=== PATIENT | female | born 1970 | race Caucasian/White ===

== ENCOUNTER → 2023-07-27 | Outpatient (REF) | LOC: M PLAIMG 13:46 | PROVIDERS: ATTEND Internal Medicine | DX: R52 Pain, unspecified (principal) ==

== ENCOUNTER 2025-03-24 13:43 | Emergency (ER) | payer MEDICARE, OTHER ==
[~2025-03-24] VITALS: Ht 152.4 cm; Wt 70.9 kg
[2025-03-24 14:00] VITALS: TEMP 97.1
[2025-03-24] MEDS ORDERED: GABA-284 PO (14:16)
[2025-03-24] MEDS ORDERED: CLONI1TA PO (14:16)
[2025-03-24 14:30] LABS: CALCIUM LEVEL 8.9 MG/DL (8.5-10.1); CREATININE FOR GFR 2.36 MG/DL (0.55-1.30); GLOMERULAR FILTRATION RATE 23.6 (>51); POTASSIUM SERUM 5.3 MMOL/L (3.5-5.1)
[2025-03-24 14:31] LABS: BASO # 0.1 10^3/uL (0.0-0.2); BASO % 0.3 % (0.0-1.0); EOS % 0.1 % (0.0-3.0); HEMATOCRIT 38.2 % (36.0-47.0); HEMOGLOBIN 12.4 g/dl (12.0-15.5); LYMPH # 1.7 10^3/uL (1.5-5.0); LYMPH % 10.3 % (24.0-44.0); MEAN CORPUSCULAR HEMOGLOBIN 30.3 pg (27.0-33.0); MEAN CORPUSCULAR HGB CONC 32.5 g/dl (32.0-36.5); MEAN CORPUSCULAR VOLUME 93.4 fl (80.0-96.0); MONO # 1.4 10^3/uL (0.0-0.8); MONO % 8.4 % (2.0-8.0); NEUTROPHILS # 13.1 10^3/uL (1.5-8.5); NEUTROPHILS % 80.5 % (36.0-66.0); PLATELET COUNT, AUTOMATED 313 10^3/uL (150-450); RED BLOOD COUNT 4.09 10^6/uL (4.00-5.40); WHITE BLOOD COUNT 16.2 10^3/uL (4.0-10.0)
[2025-03-24] MEDS: NS (Normal Saline) 0.9% 1,000 ML IV ONE (15:10)
[2025-03-24 15:54] LABS: APPEARANCE, URINE CLOUDY (CLEAR); BACTERIA, URINE AUTO 2+ (NEGATIVE); BILIRUBIN, URINE AUTO 1+ (NEGATIVE); BLOOD, URINE BLOOD NEGATIVE (NEGATIVE); COLOR, URINE AMBER (YELLOW); GLUCOSE, URINE (UA) AUTO NEGATIVE (NEGATIVE); KETONE, URINE AUTO TRACE mg/dL (NEGATIVE); LEUKOCYTE ESTERASE, URINE AUTO NEGATIVE (NEGATIVE); MUCUS, URINE SMALL (NEGATIVE); NITRITE, URINE AUTO NEGATIVE (NEGATIVE); PROTEIN, URINE AUTO 2+ mg/dL (NEGATIVE); RBC, URINE AUTO 2 /HPF (0-3); SPECIFIC GRAVITY URINE AUTO 1.026 (1.002-1.035); SQUAMOUS EPITHELIAL CELL UR AU 7 /HPF (0-6); WBC, URINE AUTO 9 /HPF (0-3)
[2025-03-24 16:01] LABS: AMPHETAMINES LEVEL URINE NEGATIVE (NEGATIVE); BARBITURATES URINE NEGATIVE (NEGATIVE); BENZODIAZEPINES URINE NEGATIVE (NEGATIVE); CANNABINOIDS URINE NEGATIVE (NEGATIVE); METHADONE URINE NEGATIVE (NEGATIVE); OPIATES URINE NEGATIVE (NEGATIVE); PHENCYCLIDINE URINE NEGATIVE (NEGATIVE)
[2025-03-24 16:04] LABS: COCAINE METABOLITE URINE POSITIVE (NEGATIVE)
[2025-03-24 17:15] VITALS: BP 146/86
[2025-03-24 17:30] VITALS: O2SAT 100
== END 2025-03-24 17:49 | disposition left against medical advice (07) ==
LOC: M ED 13:43
DX: R55 Syncope and collapse (principal); Z53.9 Procedure and treatment not carried out, unspecified reason; M54.9 Dorsalgia, unspecified; J44.9 Chronic obstructive pulmonary disease, unspecified; K21.9 Gastro-esophageal reflux disease without esophagitis; D50.9 Iron deficiency anemia, unspecified; E78.5 Hyperlipidemia, unspecified; F31.9 Bipolar disorder, unspecified; F90.9 Attention-deficit hyperactivity disorder, unspecified type; F14.10 Cocaine abuse, uncomplicated; F11.10 Opioid abuse, uncomplicated; Z87.891 Personal history of nicotine dependence; K52.9 Noninfective gastroenteritis and colitis, unspecified; M43.27 Fusion of spine, lumbosacral region

== ENCOUNTER → 2025-04-13 | Outpatient (REF) | payer MEDICAID, OTHER ==
[~2025-04-13] MED LIST: CLONI1TA PO; GABA-284 PO
== END ==
LOC: M LAB REF 13:10
PROVIDERS: ATTEND Internal Medicine
DX: R19.7 Diarrhea, unspecified (principal)

== ENCOUNTER 2025-05-10 02:34 | Emergency (ER) | payer MEDICARE, MEDICAID ==
[~2025-05-10] VITALS: Ht 152.4 cm; Wt 74.1 kg
[2025-05-10 06:44] LABS: BASO # 0.1 10^3/uL (0.0-0.2); BASO % 0.6 % (0.0-1.0); EOS # 0.3 10^3/uL (0.0-0.5); EOS % 2.9 % (0.0-3.0); LYMPH # 3.2 10^3/uL (1.5-5.0); LYMPH % 34.7 % (24.0-44.0); MONO # 0.8 10^3/uL (0.0-0.8); MONO % 8.8 % (2.0-8.0); NEUTROPHILS # 4.9 10^3/uL (1.5-8.5); NEUTROPHILS % 52.8 % (36.0-66.0); PLATELET COUNT, AUTOMATED 287 10^3/uL (150-450)
[2025-05-10 06:57] LABS: KETONE, URINE AUTO RFX NEGATIVE (NEGATIVE); LEUKOCYTE ESTERASE UR AUTO RFX NEGATIVE (NEGATIVE); MUCUS, URINE RFX SMALL (NEGATIVE); NITRITE, URINE AUTO RFX NEGATIVE (NEGATIVE); RBC, URINE AUTO RFX 1 /HPF (0-3); SQUAM EPITHELIAL CELL UR AURFX 6 /HPF (0-6); WBC, URINE AUTO RFX 5 /HPF (0-3)
[2025-05-10] MEDS ORDERED: ISOVUE-370 76% 100 ML VIAL As Ordered ONE (06:57)
[2025-05-10 07:07] LABS: ALT/SGPT 14.0 U/L (7.0-40); AST/SGOT 15.0 U/L (<34); CALCIUM LEVEL 9.9 MG/DL (8.5-10.1); CARBON DIOXIDE LEVEL 27.0 MMOL/L (20-31); CHLORIDE LEVEL 106.0 MMOL/L (98-107); CREATININE FOR GFR 1.17 MG/DL (0.55-1.30); GLOMERULAR FILTRATION RATE 54.8 (>51); POTASSIUM SERUM 4.4 MMOL/L (3.5-5.1); SODIUM LEVEL 144.0 MMOL/L (136-145)
[2025-05-10] MEDS: ONDANSETRON 4MG 2ML VIAL IV ONE (07:35)
[2025-05-10] MEDS: MORPHINE 2 MG/ML 1 ML VIAL IV PRN (07:36)
[2025-05-10] MEDS: NS 500 ML IV ONE (08:35)
[2025-05-10] MEDS ORDERED: CLIN-30 PO (08:40)
[2025-05-10] MEDS ORDERED: ONDA-282 PO (08:41)
[2025-05-10] MEDS: CLINDAMYCIN 150 MG CAPSULE PO ONE (08:57)
[2025-05-10 09:53] VITALS: BP 114/79; TEMP 96.4; O2SAT 99
== END 2025-05-10 10:02 | disposition home or self-care (01) ==
LOC: M ED 02:34
DX: K29.70 Gastritis, unspecified, without bleeding (principal); L72.0 Epidermal cyst; N28.1 Cyst of kidney, acquired; K76.0 Fatty (change of) liver, not elsewhere classified; Z98.1 Arthrodesis status; F41.9 Anxiety disorder, unspecified; F31.9 Bipolar disorder, unspecified; F60.9 Personality disorder, unspecified; J44.9 Chronic obstructive pulmonary disease, unspecified; Z79.899 Other long term (current) drug therapy; Z88.0 Allergy status to penicillin; Z88.5 Allergy status to narcotic agent; Z88.8 Allergy status to other drugs, medicaments and biological substances
CPT/HCPCS: 10160; 74177; 76536; 80047; 80053; 81001; 85025; 96361; 96374; 96375; 99284; J2405; Q9967

== ENCOUNTER 2025-05-20 18:36 | Emergency (ER) | payer MEDICARE, MEDICAID ==
[~2025-05-20] VITALS: Ht 152.4 cm; Wt 78.2 kg
[~2025-05-20 18:36] MED LIST changes: +CLIN-30 PO; +ONDA-282 PO
[2025-05-20 19:57] VITALS: TEMP 98.3
[2025-05-20] MEDS: PERCOCET 5MG/325MG TAB PO ONE (19:57)
[2025-05-20] MEDS: ONDANSETRON 4MG ORAL DISINTEGRATING TAB PO ONE (19:57)
[2025-05-20 20:06] LABS: BASO # 0.1 10^3/uL (0.0-0.2); BASO % 1.0 % (0.0-1.0); EOS # 0.3 10^3/uL (0.0-0.5); EOS % 3.6 % (0.0-3.0); LYMPH # 3.7 10^3/uL (1.5-5.0); LYMPH % 40.9 % (24.0-44.0); MONO # 0.8 10^3/uL (0.0-0.8); MONO % 9.0 % (2.0-8.0); NEUTROPHILS # 4.1 10^3/uL (1.5-8.5); NEUTROPHILS % 44.9 % (36.0-66.0); PLATELET COUNT, AUTOMATED 372 10^3/uL (150-450)
[2025-05-20 20:12] LABS: ERYTHROCYTE SEDIMENTATION RATE 13 mm/hr (0-30)
[2025-05-20 20:38] LABS: CALCIUM LEVEL 9.0 MG/DL (8.5-10.1); CARBON DIOXIDE LEVEL 25.0 MMOL/L (20-31); CHLORIDE LEVEL 104.0 MMOL/L (98-107); CREATININE FOR GFR 0.84 MG/DL (0.55-1.30); GLOMERULAR FILTRATION RATE 81.5 (>51); POTASSIUM SERUM 4.8 MMOL/L (3.5-5.1); SODIUM LEVEL 141.0 MMOL/L (136-145)
[2025-05-20 20:39] LABS: C REACTIVE PROTEIN QUANTITATIV 0.78 MG/DL (<1.0)
[2025-05-20 20:45] VITALS: BP 141/76
[2025-05-20] MEDS ORDERED: DOXY-441 PO (20:49)
[2025-05-20 20:51] VITALS: O2SAT 99
[2025-05-20] MEDS: DOXYCYCLINE HYCLATE 100 MG TABLET PO ONE (21:08)
[2025-05-20] MEDS: OXYCODONE/APAP 5MG/325MG(HOME DOSE PACK) PO ONE (21:09)
== END 2025-05-20 21:10 | disposition home or self-care (01) ==
LOC: M ED 18:36
DX: T81.41XA Infection following a procedure, superficial incisional surgical site, initial encounter (principal); J44.9 Chronic obstructive pulmonary disease, unspecified; F31.9 Bipolar disorder, unspecified; F41.9 Anxiety disorder, unspecified; F60.3 Borderline personality disorder; Z79.899 Other long term (current) drug therapy; Z88.0 Allergy status to penicillin; Z88.5 Allergy status to narcotic agent; Z88.8 Allergy status to other drugs, medicaments and biological substances

== ENCOUNTER → 2025-07-20 | Outpatient (CLI) | payer MEDICARE ==
[~2025-07-20] MED LIST changes: +DOXY-441 PO
[2025-07-20 13:58] LABS: APPEARANCE, URINE CLEAR (CLEAR); BACTERIA, URINE AUTO 2+ (NEGATIVE); BILIRUBIN, URINE AUTO NEGATIVE (NEGATIVE); BLOOD, URINE BLOOD NEGATIVE (NEGATIVE); GLUCOSE, URINE (UA) AUTO NEGATIVE (NEGATIVE); KETONE, URINE AUTO NEGATIVE (NEGATIVE); LEUKOCYTE ESTERASE, URINE AUTO NEGATIVE (NEGATIVE); NITRITE, URINE AUTO NEGATIVE (NEGATIVE); PROTEIN, URINE AUTO NEGATIVE (NEGATIVE); RBC, URINE AUTO 0 /HPF (0-3); SPECIFIC GRAVITY URINE AUTO 1.009 (1.002-1.035); SQUAMOUS EPITHELIAL CELL UR AU 1 /HPF (0-6); UROBILINOGEN, URINE AUTO 0.2 mg/dL (0.0-2.0); WBC, URINE AUTO 1 /HPF (0-3)
[2025-07-20 14:38] LABS: BASO # 0.1 10^3/uL (0.0-0.2); BASO % 1.1 % (0.0-1.0); EOS # 0.1 10^3/uL (0.0-0.5); EOS % 1.9 % (0.0-3.0); LYMPH # 2.3 10^3/uL (1.5-5.0); LYMPH % 32.0 % (24.0-44.0); MONO # 0.5 10^3/uL (0.0-0.8); MONO % 6.4 % (2.0-8.0); NEUTROPHILS # 4.2 10^3/uL (1.5-8.5); NEUTROPHILS % 58.2 % (36.0-66.0); PLATELET COUNT, AUTOMATED 380 10^3/uL (150-450)
[2025-07-20 14:44] LABS: ESTIMATED AVERAGE GLUCOSE 111.0 MG/DL (60-110)
[2025-07-20 15:02] LABS: ALT/SGPT 15.0 U/L (7.0-40); AST/SGOT 13.0 U/L (<34); CALCIUM LEVEL 9.7 MG/DL (8.5-10.1); CARBON DIOXIDE LEVEL 26.0 MMOL/L (20-31); CHLORIDE LEVEL 104.0 MMOL/L (98-107); CHOLESTEROL LEVEL 233.0 MG/DL (<200); CHOLESTEROL RISK RATIO 3.25 (<5); CREATININE FOR GFR 0.93 MG/DL (0.55-1.30); GLOMERULAR FILTRATION RATE 72.1 (>51); LDL CHOLESTEROL 99.6 MG/DL (<100); NON-HDL-C 161.4 MG/DL; POTASSIUM SERUM 4.6 MMOL/L (3.5-5.1); SODIUM LEVEL 141.0 MMOL/L (136-145); TOTAL 25(OH) VITAMIN D 30.5 NG/ML (20.0-100.0); TRIGLYCERIDES LEVEL 309.0 MG/DL (<150)
== END ==
LOC: M LAB 13:00
PROVIDERS: ATTEND Internal Medicine
DX: I10 Essential (primary) hypertension (principal); Z79.899 Other long term (current) drug therapy

== ENCOUNTER 2025-07-25 18:33 | Emergency (ER) | payer MEDICARE ==
[~2025-07-25] VITALS: Ht 167.6 cm; Wt 74.8 kg
[2025-07-25 18:35] VITALS: BP 135/64; TEMP 97; O2SAT 99
[2025-07-25] MEDS ORDERED: CYCL-707 PO (18:46)
[2025-07-25] MEDS ORDERED: ACET-907 PO (18:46)
[2025-07-25] MEDS ORDERED: CYCL5TAB4 PO (18:46)
[2025-07-25] MEDS: KETOROLAC 60 MG/2 ML VIAL IM ONE (19:06)
[2025-07-26] MEDS ORDERED: IBUP80TA PO (10:58)
[2025-07-26] MEDS ORDERED: GABA-1490 (10:58)
[2025-07-26] MEDS ORDERED: ACET-1593 (10:58)
[2025-07-26] MEDS ORDERED: REXU1TAB2 (10:58)
[2025-07-26] MEDS ORDERED: CLON0.2T (10:58)
== END 2025-07-25 19:20 | disposition home or self-care (01) ==
LOC: M ED 18:33
DX: M54.40 Lumbago with sciatica, unspecified side (principal); I51.9 Heart disease, unspecified; J44.9 Chronic obstructive pulmonary disease, unspecified; Z88.0 Allergy status to penicillin; Z88.5 Allergy status to narcotic agent; Z88.8 Allergy status to other drugs, medicaments and biological substances
CPT/HCPCS: 96372; 99283; J1885

== ENCOUNTER 2025-07-26 10:38 | Emergency (ER) | payer MEDICARE ==
[~2025-07-26] VITALS: Ht 170.2 cm; Wt 76.7 kg
[~2025-07-26 10:38] MED LIST changes: +ACET-907 PO; +CYCL-707 PO; +CYCL5TAB4 PO
[2025-07-26 10:40] VITALS: TEMP 97.6; O2SAT 98
[2025-07-26 10:42] VITALS: BP 118/70
[2025-07-26] MEDS ORDERED: GABA-1490 (10:58)
[2025-07-26] MEDS ORDERED: ACET-1593 (10:58)
[2025-07-26] MEDS ORDERED: CLON0.2T (10:58)
[2025-07-26] MEDS ORDERED: IBUP80TA PO (10:58)
[2025-07-26] MEDS ORDERED: REXU1TAB2 (10:58)
== END 2025-07-26 11:09 | disposition left against medical advice (07) ==
LOC: M ED 10:38
DX: Z53.21 Procedure and treatment not carried out due to patient leaving prior to being seen by health care provider (principal)

== ENCOUNTER 2025-08-07 19:52 | Emergency (ER) | payer MEDICARE ==
[~2025-08-07] VITALS: Ht 152.4 cm; Wt 71.4 kg
[~2025-08-07 19:52] MED LIST changes: +ACET-1593; +CLON0.2T; +GABA-1490; +IBUP80TA PO; +REXU1TAB2
[2025-08-07 19:57] VITALS: TEMP 97.2
[2025-08-07] MEDS ORDERED: ISOVUE-370 76% 100 ML VIAL As Ordered ONE (20:59)
[2025-08-07] MEDS: MORPHINE 4 MG/ML 1 ML VIAL IV ONE (21:12)
[2025-08-07 21:15] LABS: BASO # 0.1 10^3/uL (0.0-0.2); BASO % 0.9 % (0.0-1.0); EOS # 0.3 10^3/uL (0.0-0.5); EOS % 2.7 % (0.0-3.0); LYMPH # 3.0 10^3/uL (1.5-5.0); LYMPH % 31.1 % (24.0-44.0); MONO # 0.8 10^3/uL (0.0-0.8); MONO % 8.3 % (2.0-8.0); NEUTROPHILS # 5.6 10^3/uL (1.5-8.5); NEUTROPHILS % 56.7 % (36.0-66.0); PLATELET COUNT, AUTOMATED 358 10^3/uL (150-450)
[2025-08-07 21:48] LABS: C REACTIVE PROTEIN QUANTITATIV 6.69 MG/DL (<1.0); CALCIUM LEVEL 8.7 MG/DL (8.5-10.1); CARBON DIOXIDE LEVEL 23 MMOL/L (20-31); CHLORIDE LEVEL 109 MMOL/L (98-107); CREATININE FOR GFR 0.77 MG/DL (0.55-1.30); GLOMERULAR FILTRATION RATE > 90.0 (>51); MAGNESIUM LEVEL 1.5 MG/DL (1.8-2.4); POTASSIUM SERUM 3.3 MMOL/L (3.5-5.1); SODIUM LEVEL 142 MMOL/L (136-145)
[2025-08-07] MEDS ORDERED: LEVO1TAB40 PO (23:04)
[2025-08-07] MEDS ORDERED: CIPR7.5D2 AD (23:04)
[2025-08-07] MEDS: MAG SULF 1GM/100ML (MAG RUN) 1 GM in IV 1 EA IV ONE (23:27)
[2025-08-07] MEDS: NS (Normal Saline) 0.9% 1,000 ML IV ONE (23:27)
[2025-08-07] MEDS: POTASSIUM CHLORIDE 10% LIQ 20MEQ/15ML UDC PO ONE (23:32)
[2025-08-07] MEDS: CIPRODEX OTIC SUSP 7.5 ML AD STA (23:33)
[2025-08-07] MEDS: PERCOCET 5MG/325MG TAB PO ONE (23:42)
[2025-08-08] MEDS: LevoFLOXacin IV 750 MG in IV 1 EA IV ONE (00:30)
[2025-08-08 02:00] VITALS: BP 118/59; O2SAT 100
[2025-08-08] MEDS ORDERED: DOXY-441 PO (02:10)
[2025-08-08] MEDS ORDERED: FLUC150T9 PO (02:10)
[2025-08-08] MEDS: OXYCODONE/APAP 5MG/325MG(HOME DOSE PACK) PO ONE (02:20)
== END 2025-08-08 02:26 | disposition home or self-care (01) ==
LOC: M ED 19:52
DX: E83.42 Hypomagnesemia (principal); E87.6 Hypokalemia; H70.001 Acute mastoiditis without complications, right ear; F31.9 Bipolar disorder, unspecified; I10 Essential (primary) hypertension; J44.9 Chronic obstructive pulmonary disease, unspecified; Z79.899 Other long term (current) drug therapy; Z88.0 Allergy status to penicillin; Z88.5 Allergy status to narcotic agent; Z88.8 Allergy status to other drugs, medicaments and biological substances
CPT/HCPCS: 70450; 70487; 80048; 83735; 84145; 84443; 85025; 86140; 87040; 96365; 96366; 96367; 96375; 99284; G0463; J1956; J3475; Q9967

== ENCOUNTER → 2025-08-28 | Outpatient (CLI) | payer MEDICARE ==
[~2025-08-28] MED LIST changes: +ACET-1387; -ACET-1593; +CIPR7.5D2 AD; +FLUC150T9 PO; +LEVO1TAB40 PO
[2025-08-28 09:49] LABS: BASO # 0.1 10^3/uL (0.0-0.2); BASO % 0.9 % (0.0-1.0); EOS # 0.2 10^3/uL (0.0-0.5); EOS % 3.6 % (0.0-3.0); LYMPH # 1.9 10^3/uL (1.5-5.0); LYMPH % 29.6 % (24.0-44.0); MONO # 0.5 10^3/uL (0.0-0.8); MONO % 8.2 % (2.0-8.0); NEUTROPHILS # 3.7 10^3/uL (1.5-8.5); NEUTROPHILS % 57.5 % (36.0-66.0); PLATELET COUNT, AUTOMATED 352 10^3/uL (150-450)
[2025-08-28 10:16] LABS: C REACTIVE PROTEIN QUANTITATIV < 0.50 MG/DL (<1.0)
[2025-08-28 10:18] LABS: ALT/SGPT 14 U/L (7.0-40); AST/SGOT 15 U/L (<34); CALCIUM LEVEL 9.6 MG/DL (8.5-10.1); CARBON DIOXIDE LEVEL 29 MMOL/L (20-31); CHLORIDE LEVEL 103 MMOL/L (98-107); CREATININE FOR GFR 0.88 MG/DL (0.55-1.30); GLOMERULAR FILTRATION RATE 77.1 (>51); POTASSIUM SERUM 5.3 MMOL/L (3.5-5.1); SODIUM LEVEL 142 MMOL/L (136-145)
[2025-08-28 10:28] LABS: CPK CREATINE PHOSPHOKINASE 40 U/L (34-145)
== END ==
LOC: M LAB 08:48
PROVIDERS: ATTEND Internal Medicine
DX: A49.02 Methicillin resistant Staphylococcus aureus infection, unspecified site (principal)

== ENCOUNTER → 2025-09-13 | Outpatient (REF) | payer MEDICARE ==
[~2025-09-13] MED LIST changes: +LIDO1ADH93 TOP; +TRIM300C23 PO
== END ==
LOC: M LAB REF 16:46
PROVIDERS: ATTEND Physician Assistant
DX: B34.9 Viral infection, unspecified (principal)

== ENCOUNTER 2025-09-15 09:17 | Emergency (ER) | payer MEDICARE ==
[~2025-09-15] VITALS: Ht 152.4 cm; Wt 75.4 kg
[~2025-09-15 09:17] MED LIST changes: -LIDO1ADH93 TOP; -TRIM300C23 PO
[2025-09-15] MEDS: ONDANSETRON 4MG/2ML VIAL IV ONE (12:16)
[2025-09-15] MEDS: NS (Normal Saline) 0.9% 1,000 ML IV ONE (12:16)
[2025-09-15] MEDS: KETOROLAC 30 MG/ML 1 ML VIAL IV ONE (12:17)
[2025-09-15 12:23] LABS: APPEARANCE, URINE CLEAR (CLEAR); BACTERIA, URINE AUTO 1+ (NEGATIVE); BILIRUBIN, URINE AUTO NEGATIVE (NEGATIVE); BLOOD, URINE BLOOD NEGATIVE (NEGATIVE); GLUCOSE, URINE (UA) AUTO NEGATIVE (NEGATIVE); KETONE, URINE AUTO NEGATIVE (NEGATIVE); LEUKOCYTE ESTERASE, URINE AUTO NEGATIVE (NEGATIVE); NITRITE, URINE AUTO NEGATIVE (NEGATIVE); PROTEIN, URINE AUTO NEGATIVE (NEGATIVE); RBC, URINE AUTO 0 /HPF (0-3); SPECIFIC GRAVITY URINE AUTO 1.015 (1.002-1.035); SQUAMOUS EPITHELIAL CELL UR AU 1 /HPF (0-6); UROBILINOGEN, URINE AUTO 0.2 mg/dL (0.0-2.0); WBC, URINE AUTO 1 /HPF (0-3)
[2025-09-15 12:23] LABS: BASO # 0.1 10^3/uL (0.0-0.2); BASO % 1.0 % (0.0-1.0); EOS # 0.3 10^3/uL (0.0-0.5); EOS % 3.9 % (0.0-3.0); LYMPH # 2.6 10^3/uL (1.5-5.0); LYMPH % 33.1 % (24.0-44.0); MONO # 0.5 10^3/uL (0.0-0.8); MONO % 6.3 % (2.0-8.0); NEUTROPHILS # 4.4 10^3/uL (1.5-8.5); NEUTROPHILS % 54.9 % (36.0-66.0); PLATELET COUNT, AUTOMATED 340 10^3/uL (150-450)
[2025-09-15 12:44] VITALS: TEMP 96.4; O2SAT 100
[2025-09-15 12:45] LABS: ALT/SGPT 20 U/L (7.0-40); AST/SGOT 14 U/L (<34); CALCIUM LEVEL 9.6 MG/DL (8.5-10.1); CARBON DIOXIDE LEVEL 28 MMOL/L (20-31); CHLORIDE LEVEL 104 MMOL/L (98-107); CREATININE FOR GFR 0.79 MG/DL (0.55-1.30); GLOMERULAR FILTRATION RATE 87.7 (>51); POTASSIUM SERUM 4.8 MMOL/L (3.5-5.1); SODIUM LEVEL 139 MMOL/L (136-145)
[2025-09-15 13:20] VITALS: BP 190/92
[2025-09-15] MEDS: ACETAMINOPHEN 500 MG TAB PO ONE (13:20)
[2025-09-15] MEDS: LIDOCAINE 5% PATCH TD ONE (13:21)
[2025-09-15] MEDS ORDERED: LIDO1ADH93 TOP (13:23)
[2025-09-15] MEDS ORDERED: TRIM300C23 PO (13:25)
== END 2025-09-15 13:34 | disposition home or self-care (01) ==
LOC: M ED 09:17
DX: M54.9 Dorsalgia, unspecified (principal); R11.2 Nausea with vomiting, unspecified; R19.7 Diarrhea, unspecified; F31.9 Bipolar disorder, unspecified; F41.9 Anxiety disorder, unspecified; F60.9 Personality disorder, unspecified; J44.9 Chronic obstructive pulmonary disease, unspecified; F17.200 Nicotine dependence, unspecified, uncomplicated; Z79.899 Other long term (current) drug therapy; Z88.0 Allergy status to penicillin; Z88.5 Allergy status to narcotic agent; Z88.8 Allergy status to other drugs, medicaments and biological substances
CPT/HCPCS: 36415; 80048; 80076; 81001; 83690; 85025; 96361; 96374; 96375; 99284; J1885; J2405

== ENCOUNTER → 2025-09-17 | Outpatient (CLI) | payer MEDICARE ==
[~2025-09-17] MED LIST changes: -ACET-1387; +ACET-1387 PO; +BACT800T5 PO; -CLON0.2T; +CLON0.2T PO; +ESTR1TAB PO; -GABA-1490; +GABA-1490 PO; +LIDO1ADH93 TOP; +LORA-1041 PO; +LUMA42CA4 PO; +METH-1164 PO; +MUPI2OI TOP; +NAPR-837 PO; +NICO2LOZ29 MT; +OLAN2.5T53 PO; +OLME5TAB27 PO; +PANT-23 PO; -REXU1TAB2; +REXU1TAB2 PO; +TRIM300C23 PO; +VENL150C43 PO
== END ==
LOC: M RAD 12:38
PROVIDERS: ATTEND Physician Assistant Medical
DX: N20.0 Calculus of kidney (principal); R19.5 Other fecal abnormalities; K57.30 Diverticulosis of large intestine without perforation or abscess without bleeding; R06.02 Shortness of breath; R10.31 Right lower quadrant pain; R10.11 Right upper quadrant pain; R11.14 Bilious vomiting
CPT/HCPCS: 36415; 74176; 80053; 83690; 83880; 85025; 85652; 86140; G0463

== ENCOUNTER → 2025-09-17 | Outpatient (CLI) | payer MEDICARE ==
[~2025-09-17] MED LIST changes: +ACET-1387; -ACET-1387 PO; -BACT800T5 PO; +CLON0.2T; -CLON0.2T PO; -ESTR1TAB PO; +GABA-1490; -GABA-1490 PO; -LORA-1041 PO; -LUMA42CA4 PO; -METH-1164 PO; -MUPI2OI TOP; -NAPR-837 PO; -NICO2LOZ29 MT; -OLAN2.5T53 PO; -OLME5TAB27 PO; -PANT-23 PO; +REXU1TAB2; -REXU1TAB2 PO; -VENL150C43 PO
[2025-09-17 14:45] LABS: BASO # 0.1 10^3/uL (0.0-0.2); BASO % 1.0 % (0.0-1.0); EOS # 0.3 10^3/uL (0.0-0.5); EOS % 3.7 % (0.0-3.0); LYMPH # 2.9 10^3/uL (1.5-5.0); LYMPH % 31.2 % (24.0-44.0); MONO # 0.6 10^3/uL (0.0-0.8); MONO % 6.9 % (2.0-8.0); NEUTROPHILS # 5.2 10^3/uL (1.5-8.5); NEUTROPHILS % 56.8 % (36.0-66.0); PLATELET COUNT, AUTOMATED 374 10^3/uL (150-450)
[2025-09-17 15:11] LABS: C REACTIVE PROTEIN QUANTITATIV < 0.50 MG/DL (<1.0)
[2025-09-17 15:12] LABS: ALT/SGPT 14 U/L (7.0-40); AST/SGOT 12 U/L (<34); CALCIUM LEVEL 9.3 MG/DL (8.5-10.1); CARBON DIOXIDE LEVEL 28 MMOL/L (20-31); CHLORIDE LEVEL 103 MMOL/L (98-107); CREATININE FOR GFR 0.94 MG/DL (0.55-1.30); GLOMERULAR FILTRATION RATE 71.2 (>51); POTASSIUM SERUM 5.6 MMOL/L (3.5-5.1); SODIUM LEVEL 139 MMOL/L (136-145)
== END ==
LOC: M PLALAB 11:29
PROVIDERS: ATTEND Physician Assistant Medical
DX: R06.02 Shortness of breath (principal)